=== PATIENT | male | born 1995 | race Two or more races ===

== ENCOUNTER 2022-12-09 12:18 | Emergency (ER) | payer SELFPAY ==
[2022-12-09] MEDS ORDERED: Lidocaine 1% 5 ML VIAL INJECT ONE (12:54)
[2022-12-09] MEDS ORDERED: Bacitracin/Neomycin/Polymyxin B Oint 0.9 GM U/D Packet TOP ONE (12:54)
[2022-12-09] MEDS ORDERED: Diphtheria,Pertussis(Acell),Tetanus Vaccine 0.5 ML Syringe IM ONE (13:57)
== END 2022-12-09 14:35 | disposition home or self-care (01) ==
LOC: LL.ED 12:18
DX: S61.211A Laceration without foreign body of left index finger without damage to nail, initial encounter (principal); I95.2 Hypotension due to drugs; Z23 Encounter for immunization; W31.1XXA Contact with metalworking machines, initial encounter
CPT/HCPCS: 12001; 90471; 90715; 99282; J3490